=== PATIENT | female | born 1995 | race Caucasian/White ===

== ENCOUNTER 2019-03-21 11:43 | Emergency (ER) | payer OTHER ==
[~2019-03-21] VITALS: Ht 152.4 cm; Wt 48.5 kg
--- NOTE | 2019-03-21 11:55 | NUR ---
at bedside to examine patient.
--- NOTE | 2019-03-21 12:43 | NUR ---
Patient discharged to home in stable conditon. Written and verbal after care instructions given. Patient verbalizes understanding of instructions.
[2019-03-21 12:45] VITALS: BP 102/58
== END 2019-03-21 12:51 | disposition home or self-care (01) ==
LOC: ER 11:45
DX: O26.891 Other specified pregnancy related conditions, first trimester (principal); R11.0 Nausea; L98.9 Disorder of the skin and subcutaneous tissue, unspecified; F12.10 Cannabis abuse, uncomplicated; Z3A.10 10 weeks gestation of pregnancy
CPT/HCPCS: 70030-TC; A4663

== ENCOUNTER 2019-03-25 16:40 | Emergency (ER) | payer OTHER ==
[~2019-03-25] VITALS: Ht 152.4 cm; Wt 49.0 kg
--- NOTE | 2019-03-25 17:00 | NUR ---
Dr Waddell at the bedside for MSE.
--- NOTE | 2019-03-25 18:02 | NUR ---
[facility] tech at the bedside damien calderón [facility].
--- NOTE | 2019-03-25 18:16 | NUR ---
Patient discharged to home in stable conditon. Written and verbal after care instructions given. Patient verbalizes understanding of instructions.
[2019-03-25 18:17] VITALS: BP 113/68
== END 2019-03-25 18:18 | disposition home or self-care (01) ==
LOC: ER 16:40
DX: O9A.211 Injury, poisoning and certain other consequences of external causes complicating pregnancy, first trimester (principal); S39.91XA Unspecified injury of abdomen, initial encounter; F12.10 Cannabis abuse, uncomplicated; Z3A.11 11 weeks gestation of pregnancy; V49.9XXA Car occupant (driver) (passenger) injured in unspecified traffic accident, initial encounter; Y93.89 Activity, other specified; Y92.89 Other specified places as the place of occurrence of the external cause; Y99.8 Other external cause status
CPT/HCPCS: 76857; A4663

== ENCOUNTER 2019-07-30 11:25 | Emergency (ER) | payer OTHER ==
[~2019-07-30] VITALS: Ht 152.4 cm; Wt 60.8 kg
--- NOTE | 2019-07-30 11:52 | NUR ---
Dr Waddell at the bedside for MSE.
[2019-07-30 12:25] VITALS: BP 106/60
--- NOTE | 2019-07-30 12:26 | NUR ---
Patient discharged to home in stable conditon. Written and verbal after care instructions given. Patient verbalizes understanding of instructions.
== END 2019-07-30 12:26 | disposition home or self-care (01) ==
LOC: ER 11:25
DX: O36.8120 Decreased fetal movements, second trimester, not applicable or unspecified (principal); F12.10 Cannabis abuse, uncomplicated; Z3A.29 29 weeks gestation of pregnancy
CPT/HCPCS: 76856; A4663

== ENCOUNTER 2022-10-20 13:26 | Emergency (ER) | payer OTHER ==
[~2022-10-20] VITALS: Ht 152.4 cm; Wt 47.6 kg
--- NOTE | 2022-10-20 13:41 | NUR ---
PT SEEN AND EVALUATED BY DR CARMONA.
[2022-10-20] MEDS ORDERED: AMOX-430 PO (14:01)
[2022-10-20] MEDS ORDERED: CHLO473M3 PO (14:01)
[2022-10-20 14:07] VITALS: BP 108/58
== END 2022-10-20 14:07 | disposition home or self-care (01) ==
LOC: ER 13:26
DX: K13.0 Diseases of lips (principal); F90.9 Attention-deficit hyperactivity disorder, unspecified type
CPT/HCPCS: A4663

== ENCOUNTER 2023-02-22 12:25 | Emergency (ER) | payer MEDICAID, OTHER ==
[~2023-02-22] VITALS: Ht 152.4 cm; Wt 52.2 kg
[~2023-02-22 12:25] MED LIST: AMOX-430 PO; CHLO473M3 PO
[2023-02-22] MEDS ORDERED: IV NORMAL SALINE 1000 ML BAG IV ONE ×2 (12:30→15:00)
[2023-02-22 12:53] LABS: HEMATOCRIT 39.7 % (31.2-41.9); MEAN CORPUSCULAR HEMOGLOBIN 33.2 uug (24.7-32.8); PLATELET COUNT (AUTO) 252 K/uL (179-408)
--- NOTE | 2023-02-22 12:53 | NUR ---
Patient ambulated to room #5 with daughter, assisted into gown and placed on monitor. Informed of pplan of care at this time #20g established in left ac, blood collected and sent to lab. Bedside EKG done for MD review, no s/s of any distress noted at this time. IVF infusing as per order, will continue to monitor.
[2023-02-22] MEDS ORDERED: MECLIZINE HCL 25 MG TABLET PO ONE (13:00)
[2023-02-22] MEDS ORDERED: METOCLOPRAMIDE HCL 10 MG/2 ML VIAL ONE (13:03)
[2023-02-22] MEDS ORDERED: MECLIZINE HCL 25 MG TABLET ONE (13:03)
[2023-02-22 13:05] LABS: CREATININE 0.6 mg/dL (0.6-1.3)
[2023-02-22] MEDS: METOCLOPRAMIDE HCL 10 MG/2 ML VIAL IV ONE ×2 (13:05→13:07)
--- NOTE | 2023-02-22 13:08 | NUR ---
Patient refused reglan at this time.
[2023-02-22 13:09] LABS: BILIRUBIN,DIRECT 0.1 mg/dL (0.0-0.2); BILIRUBIN,TOTAL 0.6 mg/dL (0.2-1.0)
[2023-02-22 13:14] LABS: THYROID STIMULATING HORMONE 1.036 mIU/mL (0.358-3.740)
[2023-02-22 13:44] LABS: *BILIRUBIN,URIN NEGATIVE (NEGATIVE); *BLOOD, URINE NEGATIVE (NEGATIVE); *CLARITY,URINE CLEAR (CLEAR); *COLOR,URINE YELLOW (YELLOW); *KETONES,URINE NEGATIVE (NEGATIVE); *UROBILINOGEN,URINE 0.2 E.U./dl (NORMAL); LEUKOCYTE ESTERASE ,URINE NEGATIVE (NEGATIVE); NITRITE, URINE NEGATIVE (NEGATIVE); UGLUCOSE NEGATIVE (NEGATIVE)
[2023-02-22 13:50] LABS: *AMPHETAMINE, URINE NEGATIVE (NEGATIVE); *CANNABINOID, URINE POSITIVE (NEGATIVE); *COCCAINE, URINE NEGATIVE (NEGATIVE); *PHENCYCLIDINE SCREEN,URINE NEGATIVE (NEGATIVE)
--- NOTE | 2023-02-22 14:11 | NUR ---
Patient resting in bed, lab at bedside, no voiced c/o pain or discomfort at this time.
[2023-02-22] MEDS ORDERED: METO-295 PO (15:39)
[2023-02-22] MEDS ORDERED: MECL-159 PO (15:39)
--- NOTE | 2023-02-22 17:05 | NUR ---
ACI GIVEN, HL REMOVED REMAINS STABLE FOR DISCHARGE HOME.
[2023-02-22 17:06] VITALS: BP 118/67; O2SAT 99
== END 2023-02-22 17:08 | disposition home or self-care (01) ==
LOC: ER 12:25
DX: O99.351 Diseases of the nervous system complicating pregnancy, first trimester (principal); R42 Dizziness and giddiness; O21.8 Other vomiting complicating pregnancy; F12.10 Cannabis abuse, uncomplicated; O20.8 Other hemorrhage in early pregnancy; R10.2 Pelvic and perineal pain; Z79.2 Long term (current) use of antibiotics; Z79.899 Other long term (current) drug therapy; Z3A.08 8 weeks gestation of pregnancy
CPT/HCPCS: 80076; 80048; 81003; 84443; 85025; 86850; 86900; 86901; 84702; 36415; 93005; 76856; 99284; 96360; 96361; 80320; 80307; J2765; J7040 ×2; A4663; G0480; J8597